=== PATIENT | female | born 1960 | race Caucasian/White ===

== ENCOUNTER → 2018-07-11 | Outpatient (CLI) | payer BC ==
[~2018-07-11] MED LIST: AMBIEN PO; AMBREN; EPIVIR150 MG PO; HEPSERA10 MG PO; LINZESS PO; MULTI-VITAMIN1 EACH PO; MULTIVITAMIN PO; OS-CAL 500+D T1 EACH PO; PANTOPRAZOLE SO40 MG PO
--- NOTE | 2018-07-11 13:34 | Diagnostic Imaging Report ---
EXAMINATION: PA and lateral views of the chest. COMPARISON: None CLINICAL HISTORY: Bronchitis DISCUSSION: The lungs are well-inflated and without focal airspace consolidation, pleural effusion, or pneumothorax. Tortuous thoracic aorta with atherosclerotic calcification. Normal heart size without overt pulmonary edema. No acute osseous abnormality. Surgical clips project over the upper abdomen on the lateral radiograph likely related to prior cholecystectomy. IMPRESSION: No acute cardiopulmonary abnormalities. Signed by: Dr. Baljit Purcell M.D. on 07/11/2018 1:30 PM
== END ==
LOC: RAD 12:59
DX: J40 Bronchitis, not specified as acute or chronic (principal)
CPT/HCPCS: 71046

== ENCOUNTER → 2019-06-22 | Day surgery (SDC) | payer OTHER ==
[~2019-06-22] MED LIST changes: +CALCIUM PO; +FENTANYL CITRATE/PF 100MCG/2 ML INJ ONE; +LIDOCAINE HCL 2% LOCAL INJ 5 ML SDV VIAL INJ ONE; +LISINOPRIL10 MG PO; +MIDAZOLAM HCL 2 MG/2 ML VIAL ONE; +ONDANSETRON HCL INJ 2MG/ML 2ML 2 MG/ML VIAL ONE; +PROBIOTIC & AC1 EACH PO; +PROPOFOL IV EMULSION 10 MG/ML 20 ML VIAL ONE
--- OUTSIDE RECORDS SUMMARY | 2019-06-22 05:49 | XMS REPORT ---
Author Author [facility] t Organization [facility] Address [address] [place] [address] Phone Unavailable Care Team Providers Care Toll Gate Keeper Name Role Phone Abran Cristobal MD PCP ABRAN CRISTOBAL Attphys Unavailable Problems Condition Name Condition Details Condition Category Status Onset Date Resolution Date Last Treatment Date Treating Clinician Comments Source Tinnitus aurium Tinnitus aurium Disease Active 2016-07-30 00:00:00 Luiz Sheffield Allergies, Adverse Reactions, Alerts Allergy Name Allergy Type Status Severity Reaction(s) Onset Date Inacti ve Date Treating Clinician Comments Source Clarithromycin Propensity to adverse reactions to drug Active Itching 2016-07-30 00:00:00 Luiz lynn Family History Family Member Diagnosis Comments Start Date Stop Date Source Natural father Arthritis [facility] Natural father Hypertension [place] [facility] Natural mother Diabetes [facility] Natural mother Heart disease [place] Natural mother Hypertension [place] Social History Social Habit Start Date Stop Date Quantity Comments Source Sex Assigned At Cristal stoheladio [place] Alcohol intake 2016-07-30 00:00:00 2016-07-30 00:00:00 Current drinker of alcohol (finding) Luiz Sheffield Tobacco Comment 2016-07-30 00:00:00 2016-07-30 00:00:00 quit 40 years ago from 2017 Luiz Sheffield Alcohol Comment 2016-07-30 00:00:00 2016-07-30 00:00:00 very rarely Luiz Sheffield Smoking Status Start Date Stop Date Source Former smoker 2016-07-30 00:00:00 2016-07-30 00:00:00 Luiz Sheffield Medications Ordered Medication Name Filled Medication Name Start Date Stop Da te Current Medication? Ordering Clinician Indication Dosage Frequency Signature (SIG) Comments Components Source pantoprazole (PROTONIX) 40 MG EC tablet 2016-07-30 13:18:00 Yes 40mg Q.5D Take 40 mg by mouth 2 (two) times a day. Luiz Sheffield multivitamin capsule 2016-07-30 13:18:00 Yes 1{capsule} QD Take 1 capsule by mouth daily. Luiz fracnis CALCIUM ORAL 2016-07-30 13:18:00 Yes Take by mouth. Luiz Sheffield LACTOBACILLUS ACIDOPHILUS (PROBIOTIC ORAL) 2016-07-30 13:18:00 Yes Take by mouth. Luiz Sheffield UNABLE TO FIND 2016-07-30 13:18:00 Yes Soraida en for hot flashes Luiz Sheffield adefovir (HEPSERA) 10 MG tablet 2016-06-08 00:00:00 Yes Luiz Sheffield lamiVUDine (EPIVIR) 150 MG tablet 2016-06-08 00:00:00 Yes Luiz Sheffield VOLTAREN 1 % gel 2016-06-07 00:00:00 Yes MARCK EXT AA Q 8 H ATC UTD Luiz Sheffield Procedures This patient has no known procedures. Plan of Care Planned Activity Planned Date Details Comments Source Future Scheduled Test 2019-09-08 00:00:00 INFLUENZA VACCINE [code = INFLUENZA VACCINE] [facility] Future Scheduled Test 2009 00:00:00 BREAST CANCER SCRE ENING [code = BREAST CANCER SCREENING] [facility] Future Scheduled Test 2009 00:00:00 COLONOSCOPY SCREEN ING [code = COLONOSCOPY SCREENING] [facility] Future Scheduled Test 2009 00:00:00 SHINGLES VACCINES (#1) [code = SHINGLES VACCINES (#1)] [facility] Future Scheduled Test 1980 00:00:00 Screening for leona gnant neoplasm of cervix (procedure) [code = 782242998] Luiz francis Results Test Description Test Time Test Comments Results Result Comments Source CHEST 2 VIEWS 2018-07-11 13:26:00 [facility] [address] [address] Patient Name: EARLE FOWLER MR #: [id number] : 1960 Age/Sex: 58/F Req #: [id number] Adm Physician: Ordered by: ABRAN CRISTOBAL MD Report #: [id number] Location: [facility] Room/Bed: Procedure: [id number] DX/CHEST 2 VIEWS Exam Date: 07/11/18 Exam Time: 1320 REPORT STATUS: Signed EXAMINATION: PA and lateral views of the chest. COMPARISON: None CLINICAL HISTORY: Bronchitis DISCUSSION: The lungs are well-inflated and without focal airspace consolidation, pleural effusion, or pneumothorax. Tortuous thoracic aorta with atherosclerotic calcification. Normal heart size without overt pulmonary edema. No acute osseous abnormality. Surgical clips project over the upper abdomen on the lateral radiograph likely related to prior cholecystectomy. IMPRESSION: No acute cardiopulmonary abnormalities. Signed by: Dr. Magda Ramachandran M.D. on 07/11/2018 1:30 PM Dictated By: MAGDA RAMACHANDRAN MD [id number] Transcribed By: SOPHIA on 07/11/18 1335 COPY TO: ABRAN CRISTOBAL MD
--- OUTSIDE RECORDS SUMMARY | 2019-06-22 05:49 | XMS REPORT | Clinical Summary ---
Author Author [facility] Organization [facility] Address Unknown Phone Unavailable Care Team Providers Care Bill Checker Name Role Phone Abran Cristobal MD PCP Allergies Comments Active Allergy Reactions Severity Noted Date Clarithromycin Itching 07/30/2016 Medications End Date Status Medication Sig Dispensed Refills Start Date Active adefovir (HEPSERA) 10 MG 0 tablet 7 Active lamiVUDine (EPIVIR) 150 0 MG tablet 7 Active VOLTAREN 1 % gel MARCK EXT AA Q 0 8 H ATC UTD 7 Active pantoprazole (PROTONIX) Take 40 mg by 0 40 MG EC tablet mouth 2 (two) times a day. Active multivitamin capsule Take 1 0 capsule by mouth daily. Active CALCIUM ORAL Take by 0 mouth. Active LACTOBACILLUS ACIDOPHILUS Take by 0 (PROBIOTIC ORAL) mouth. Active UNABLE TO FIND Amberen for 0 hot flashes Active Problems Problem Noted Date Tinnitus aurium 07/30/2016 Family History Medical History Relation Name Comments Arthritis Father Hypertension Father Diabetes Mother Heart disease Mother Hypertension Mother Relation Name Status Comments Father Mother Social History Date Tobacco Use Types Packs/Day Years Used Former Smoker Comments: quit 40 years ago from 2017 Drinks/Week oz/Week Comments Alcohol Use very rarely Yes Sex Assigned at Date Recorded Not on file Industry Job Start Date Occupation Not on file Not on file Not on file Travel End Travel History Travel Start No recent travel history available. Last Filed Vital Signs Not on file Plan of Treatment Health Maintenance Due Date Last Done Comments CERVICAL CANCER SCREENING 1980 BREAST CANCER SCREENING 2009 COLONOSCOPY SCREENING 2009 SHINGLES VACCINES (#1) 2009 INFLUENZA VACCINE 09/08/2019 Results Not on fileafter 06/21/2018 Insurance Type Payer Benefit Subscriber ID Effective Phone Address Plan / Dates Group HMO/PPO [facility] xxxxxxxxx 2016-P THCARE resent CHOICE/CHO ICE + Advance Directives For more information, please contact: [phone] Patient Manager Fixed Income Explanation Type Date Recorded Advance Directives, Living Will and Medical Power of Draw Furnace Tender
--- NOTE | 2019-06-22 07:20 | NUR ---
SPIRITUAL CARE - Pre-Surgery Assessment: Pt in bed. Pt reported supportive attention from family and friends. Intervention: Provided pastoral presence, hospitality, and empathetic listening. Conveyancer acquainted pt with availability of director of search engine marketing while hospitalized. Outcome: Pt expressed appreciation for visit. No need for follow up indicated at this time. JEAN CARLOS Sen[facility] Spiritual Care Department O: [phone]
[2019-06-22 09:15] VITALS: BP 137/91
--- NOTE | 2019-06-22 15:38 | Operative Report ---
DATE OF PROCEDURE: 06/22/2019 SURGEON: Jarrell Cristobal MD PROCEDURES: EGD with esophageal dilatation and polypectomy and biopsies. INDICATION FOR EGD: Dysphagia to solids. MEDICATIONS: The patient was done under MAC. Please see anesthesiologist's note. PROCEDURE IN DETAIL: With the patient in the left lateral decubitus position, the flexible fiberoptic Olympus gastroscope was introduced into the esophagus under direct visualization without any difficulty. There was some patchy erythema noted in distal esophagus. There was a mild stricture noted at the GE junction that was dilated to size 52-[place] Muñoz. The scope was then advanced with ease into the stomach. Mucosa overlying the antrum and the body revealed some patchy erythema and low-grade edema, and biopsies were obtained, sent to stain for H. pylori. Hyperplastic-appearing polyps were noted in the body of the stomach and somewhat partially excised with the cold biopsy forceps. The pylorus was of normal contour and shape was intubated with ease and the scope was advanced all the way to the second portion of the duodenum. Biopsies were obtained from the proximal second portion and duodenal bulb to rule out sprue. The scope was then withdrawn back into the stomach and retroflexed mucosa overlying the fundus and cardia appeared to be within normal limits. The scope was then straightened out, it was subsequently withdrawn. The patient tolerated the procedure well. IMPRESSION: 1. Distal esophagitis, mild. 2. Esophageal stricture GE junction, dilated to size 52-[place] Muñoz. 3. Gastritis, biopsied. Biopsies sent to stain for Helicobacter pylori. 4. Gastric polyps, body, hyperplastic-appearing, some partially excised with cold biopsy forceps. 5. Rule out sprue. PLAN: Follow up histology. Initiate Protonix 40 mg one p.o. q.a.m. before meal. Jarrell Cristobal MD [facility] /[id number] cc: Babar Cristobal MD
== END | disposition home or self-care (01) ==
LOC: OR 05:46
PROVIDERS: ATTEND Internal Medicine Gastroenterology
DX: K22.2 Esophageal obstruction (principal); K31.7 Polyp of stomach and duodenum; K29.70 Gastritis, unspecified, without bleeding; K20.9 Esophagitis, unspecified; K21.9 Gastro-esophageal reflux disease without esophagitis; I10 Essential (primary) hypertension; Z88.8 Allergy status to other drugs, medicaments and biological substances; Z01.810 Encounter for preprocedural cardiovascular examination; Z01.812 Encounter for preprocedural laboratory examination; Z11.59 Encounter for screening for other viral diseases; Z86.010 Personal history of colon polyps; Z86.19 Personal history of other infectious and parasitic diseases
CPT/HCPCS: 43239; 43450; 87635; 93005; J2001; J2250; J2405; J2704; J3010

== ENCOUNTER → 2020-01-21 | Outpatient (CLI) | payer OTHER ==
[~2020-01-21] MED LIST changes: -FENTANYL CITRATE/PF 100MCG/2 ML INJ ONE; -LIDOCAINE HCL 2% LOCAL INJ 5 ML SDV VIAL INJ ONE; -MIDAZOLAM HCL 2 MG/2 ML VIAL ONE; -ONDANSETRON HCL INJ 2MG/ML 2ML 2 MG/ML VIAL ONE; -PROPOFOL IV EMULSION 10 MG/ML 20 ML VIAL ONE
== END ==
LOC: US 07:18
PROVIDERS: ATTEND Legal Medicine
DX: K74.60 Unspecified cirrhosis of liver (principal); B19.10 Unspecified viral hepatitis B without hepatic coma
CPT/HCPCS: 76705; 93975

== ENCOUNTER → 2020-11-11 | Outpatient (CLI) | payer OTHER | LOC: US 07:33 | PROVIDERS: ATTEND Legal Medicine | DX: K74.60 Unspecified cirrhosis of liver (principal); B18.1 Chronic viral hepatitis B without delta-agent | CPT/HCPCS: 76705 ==

== ENCOUNTER → 2021-05-26 | Outpatient (CLI) | payer OTHER | LOC: US 07:55 | PROVIDERS: ATTEND Legal Medicine | DX: B18.1 Chronic viral hepatitis B without delta-agent (principal) | CPT/HCPCS: 76705 ==

== ENCOUNTER → 2021-05-28 | Outpatient (CLI) | payer OTHER | LOC: MAMMO 08:24 | DX: N64.89 Other specified disorders of breast (principal) | CPT/HCPCS: 77066 ==

== ENCOUNTER → 2021-06-16 | Day surgery (SDC) | payer BC, OTHER ==
[2021-06-12 10:45] LABS: BASOPHILS # (AUTO) 0.1 (0.0-0.1); BASOPHILS % 0.5 % (0.0-1.0); EOSINOPHILS # (AUTO) 0.2 (0.0-0.4); EOSINOPHILS % 1.7 % (0.0-6.0); HEMATOCRIT 40.4 % (34.2-44.1); HEMOGLOBIN 14.4 g/dL (12.0-16.0); LYMPHOCYTES # (AUTO) 2.8 (1.0-3.2); LYMPHOCYTES % 28.3 % (18.0-39.1); MEAN CORPUSCULAR HEMOGLOBIN 31.2 pg (28-32); MEAN CORPUSCULAR HGB CONC 35.6 g/dL (31-35); MEAN CORPUSCULAR VOLUME 87.6 fL (81-99); MONOCYTES # (AUTO) 0.7 (0.2-0.8); MONOCYTES % 6.9 % (4.4-11.3); NEUTROPHILS # (AUTO) 6.1 (2.1-6.9); NEUTROPHILS % 62.3 % (38.7-80.0); PLATELET COUNT 226 x10e3/uL (140-360); RED BLOOD COUNT 4.61 x10e6/uL (3.6-5.1); RED CELL DISTRIBUTION WIDTH 12.8 % (11.7-14.4)
[~2021-06-16] MED LIST changes: +ACETAMINOPHEN 1000 MG/100 ML IV ONE; +ATROPINE SULFATE 1 MG/ML VIAL ONE; +BUPIVACAINE HCL 0.25% 10ML MPF VIAL INJ ONE; +DEXAMETHASONE SOD PHOS INJ 4 MG/ML SDV ONE; +EPHEDRINE SULFATE INJ 50 MG/ML VIAL ONE; +FENTANYL CITRATE/PF 100MCG/2 ML INJ ONE; +LIDOCAINE HCL 2% LOCAL INJ 5 ML SDV VIAL INJ ONE; +METOPROLOL SUCC50 MG PO; +MIDAZOLAM HCL 2 MG/2 ML VIAL ONE; +ONDANSETRON HCL INJ 2MG/ML 2ML 2 MG/ML VIAL ONE; +POVIDONE IODINE 0.05% 0.05 % ML PO ONE; +PROPOFOL IV EMULSION 10 MG/ML 20 ML VIAL ONE; +SEVOFLURANE INHAL SOLN 250 ML PEN BTL ONE; +VITAMIN B-121000 MCG PO
[2021-06-16 08:43] VITALS: BP 116/82
== END | disposition home or self-care (01) ==
LOC: OR 05:23
PROVIDERS: ATTEND Orthopaedic Surgery
DX: M67.442 Ganglion, left hand (principal); R00.1 Bradycardia, unspecified; I10 Essential (primary) hypertension; K21.9 Gastro-esophageal reflux disease without esophagitis; B19.10 Unspecified viral hepatitis B without hepatic coma; Z01.810 Encounter for preprocedural cardiovascular examination; Z01.812 Encounter for preprocedural laboratory examination; Z20.822 Contact with and (suspected) exposure to COVID-19; Z79.899 Other long term (current) drug therapy
CPT/HCPCS: 26160; 36415; 85025; 88304; 93005; J0131; J0461; J0690; J1100; J2001; J2405; J2704; U0002; J2250; J3010

== ENCOUNTER → 2021-11-03 | Day surgery (SDC) | payer BC, OTHER ==
[2021-10-30 12:31] LABS: BASOPHILS # (AUTO) 0.1 (0.0-0.1); BASOPHILS % 0.6 % (0.0-1.0); EOSINOPHILS # (AUTO) 0.2 (0.0-0.4); EOSINOPHILS % 1.9 % (0.0-6.0); HEMATOCRIT 39.9 % (34.2-44.1); HEMOGLOBIN 14.2 g/dL (12.0-16.0); LYMPHOCYTES # (AUTO) 2.6 (1.0-3.2); LYMPHOCYTES % 29.3 % (18.0-39.1); MEAN CORPUSCULAR HEMOGLOBIN 31.3 pg (28-32); MEAN CORPUSCULAR HGB CONC 35.6 g/dL (31-35); MEAN CORPUSCULAR VOLUME 88.1 fL (81-99); MONOCYTES # (AUTO) 0.6 (0.2-0.8); MONOCYTES % 6.6 % (4.4-11.3); NEUTROPHILS # (AUTO) 5.5 (2.1-6.9); NEUTROPHILS % 61.4 % (38.7-80.0); PLATELET COUNT 218 x10e3/uL (140-360); RED BLOOD COUNT 4.53 x10e6/uL (3.6-5.1); RED CELL DISTRIBUTION WIDTH 12.6 % (11.7-14.4)
[2021-10-30 12:53] LABS: INR 0.9
[2021-10-30 12:54] LABS: PARTIAL THROMBOPLASTIN TIME 25.8 seconds (23.8-35.5)
[2021-10-30 13:02] LABS: ALBUMIN/GLOBULIN RATIO 1.3 (0.8-2.0); ANION GAP 12.6 mmol/L (8-16); CREATININE, SERUM 1.54 mg/dL (0.57-1.11); POTASSIUM 3.6 mmol/L (3.5-5.1)
[~2021-11-03] MED LIST changes: -ACETAMINOPHEN 1000 MG/100 ML IV ONE; -BUPIVACAINE HCL 0.25% 10ML MPF VIAL INJ ONE; -EPHEDRINE SULFATE INJ 50 MG/ML VIAL ONE; -MIDAZOLAM HCL 2 MG/2 ML VIAL ONE
[2021-11-03 10:55] VITALS: BP 141/85
== END | disposition home or self-care (01) ==
LOC: OR 07:00
PROVIDERS: ATTEND Orthopaedic Surgery
DX: G56.01 Carpal tunnel syndrome, right upper limb (principal); I10 Essential (primary) hypertension; R00.1 Bradycardia, unspecified; K21.9 Gastro-esophageal reflux disease without esophagitis; Z88.1 Allergy status to other antibiotic agents; Z01.810 Encounter for preprocedural cardiovascular examination; Z01.812 Encounter for preprocedural laboratory examination; Z79.899 Other long term (current) drug therapy; Z98.1 Arthrodesis status; Z86.19 Personal history of other infectious and parasitic diseases
CPT/HCPCS: 29848; 36415; 80053; 85025; 85610; 85730; 93005; J0690; J3010; J0461; J1100; J2001; J2405

== ENCOUNTER → 2023-11-05 | Day surgery (SDC) | payer BC, OTHER ==
[2023-11-03 14:48] LABS: BASOPHILS # (AUTO) 0.1 (0.0-0.1); BASOPHILS % 0.6 % (0.0-1.0); EOSINOPHILS # (AUTO) 0.2 (0.0-0.4); EOSINOPHILS % 2.6 % (0.0-6.0); HEMATOCRIT 42.1 % (34.2-44.1); HEMOGLOBIN 14.9 g/dL (12.0-16.0); LYMPHOCYTES # (AUTO) 2.4 (1.0-3.2); LYMPHOCYTES % 27.3 % (18.0-39.1); MEAN CORPUSCULAR HEMOGLOBIN 30.3 pg (28-32); MEAN CORPUSCULAR HGB CONC 35.4 g/dL (31-35); MEAN CORPUSCULAR VOLUME 85.7 fL (81-99); MONOCYTES # (AUTO) 0.6 (0.2-0.8); MONOCYTES % 6.7 % (4.4-11.3); NEUTROPHILS # (AUTO) 5.5 (2.1-6.9); NEUTROPHILS % 62.6 % (38.7-80.0); PLATELET COUNT 214 x10e3/uL (140-360); RED BLOOD COUNT 4.91 x10e6/uL (3.6-5.1); RED CELL DISTRIBUTION WIDTH 13.2 % (11.7-14.4); WHITE BLOOD COUNT 8.82 x10e3/uL (4.8-10.8)
[2023-11-03 14:59] LABS: INR 0.95; PROTHROMBIN TIME 13.2 seconds (11.9-14.5)
[2023-11-03 15:00] LABS: PARTIAL THROMBOPLASTIN TIME 26.9 seconds (23.8-35.5)
[2023-11-03 15:08] LABS: ALBUMIN 4.1 g/dL (3.5-5.0); ALBUMIN/GLOBULIN RATIO 1.4 (0.8-2.0); ANION GAP 12.8 mmol/L (8-16); BILIRUBIN,TOTAL 0.8 mg/dL (0.2-1.2); CALCIUM 9.9 mg/dL (8.4-10.2); CREATININE, SERUM 1.75 mg/dL (0.57-1.11); POTASSIUM 3.8 mmol/L (3.5-5.1); TOTAL PROTEIN 7.1 g/dL (6.5-8.1)
[~2023-11-05] MED LIST changes: -ATROPINE SULFATE 1 MG/ML VIAL ONE; +BARACLUDE1 MG PO; -DEXAMETHASONE SOD PHOS INJ 4 MG/ML SDV ONE; +LIPITOR10 MG PO; +LOSARTAN POTASS25 MG PO; -ONDANSETRON HCL INJ 2MG/ML 2ML 2 MG/ML VIAL ONE; -POVIDONE IODINE 0.05% 0.05 % ML PO ONE; -SEVOFLURANE INHAL SOLN 250 ML PEN BTL ONE
[2023-11-05] MEDS: LACTATED RINGER'S 1,000 ML ONE (08:09)
[2023-11-05 09:35] VITALS: BP 131/92; PULSE 46; RESP 16; TEMP 97; O2SAT 100
== END | disposition home or self-care (01) ==
LOC: OR 06:35
PROVIDERS: ATTEND Internal Medicine Gastroenterology
DX: K22.2 Esophageal obstruction (principal); K31.7 Polyp of stomach and duodenum; K29.70 Gastritis, unspecified, without bleeding; K31.89 Other diseases of stomach and duodenum; K20.90 Esophagitis, unspecified without bleeding; K21.9 Gastro-esophageal reflux disease without esophagitis; K63.5 Polyp of colon; I10 Essential (primary) hypertension; E78.5 Hyperlipidemia, unspecified; K75.9 Inflammatory liver disease, unspecified; Z88.1 Allergy status to other antibiotic agents; Z01.810 Encounter for preprocedural cardiovascular examination; Z01.812 Encounter for preprocedural laboratory examination; Z79.899 Other long term (current) drug therapy
CPT/HCPCS: 36415; 43239; 43251; 43450; 80053; 85025; 85610; 85730; 93005; J2001; J2470; J2704; J3010; J7121

== ENCOUNTER → 2024-01-13 | Outpatient (REF) | payer OTHER ==
[~2024-01-13] MED LIST changes: -FENTANYL CITRATE/PF 100MCG/2 ML INJ ONE; -LIDOCAINE HCL 2% LOCAL INJ 5 ML SDV VIAL INJ ONE; -PROPOFOL IV EMULSION 10 MG/ML 20 ML VIAL ONE
== END ==
LOC: US 07:42
PROVIDERS: ATTEND Internal Medicine Gastroenterology
DX: B18.1 Chronic viral hepatitis B without delta-agent (principal)
CPT/HCPCS: 76700